=== PATIENT | female | born 1975 | race Two or more races ===

== ENCOUNTER → 2019-09-08 | Outpatient (CLI) | payer OTHER ==
[2016-03-07 03:11] VITALS: BP 118/76
[~2019-09-08] MED LIST: PRED20TA PO; VALA10008 PO
--- NOTE | 2019-09-08 13:15 | RAD ---
EXAM: CT Head without IV contrast INDICATION: Closed head injury. Brief loss of consciousness. TECHNIQUE: Multi-detector row CT images were obtained of the head without the use of IV contrast. All CT scans performed at this facility utilize dose optimization techniques as appropriate to the exam, including the following: Automated exposure control and adjustment of the mA and/or KV according to patient size (this includes techniques or standardized protocols for targeted exams where dose is indication/reason for exam). COMPARISON: None FINDINGS: BRAIN PARENCHYMA: No evidence of acute intraparenchymal hemorrhage or infarct. No abnormal parenchymal density or mass. VENTRICLES & EXTRA-AXIAL SPACES: Ventricles are within normal limits. Basilar cisterns are patent. No pathologic extra-axial fluid collection or mass. ORBITS: Orbital contents are unremarkable. SINUSES: Visualized paranasal sinuses and mastoid air cells are clear. OSSEOUS & SOFT TISSUES: Calvarium and skull base are intact. IMPRESSION: No acute intracranial pathology. Electronically signed by: Bret Lockwood MD (09/08/2019 1:12 PM) [id number]
== END | disposition home or self-care (01) ==
LOC: CT 12:45
PROVIDERS: ATTEND Preventive Medicine Occupational Medicine
DX: S06.9X9A Unspecified intracranial injury with loss of consciousness of unspecified duration, initial encounter (principal); X58.XXXA Exposure to other specified factors, initial encounter; Y93.89 Activity, other specified; Y92.89 Other specified places as the place of occurrence of the external cause; Y99.8 Other external cause status
CPT/HCPCS: 70450